=== PATIENT | female | born 1980 | race Hispanic/Latino ===

== ENCOUNTER 2019-12-30 09:13 | Inpatient (IN) | payer BC, MEDICAID ==
[~2019-12-30] VITALS: Ht 157.5 cm; Wt 116.6 kg
[2019-12-30] MEDS ORDERED: LACTATED RINGERS 1000ML 1,000 ML IV PRN (10:15)
[2019-12-30] MEDS ORDERED: EPHEDRINE SULFATE 50 MG/ML AMPULE IVP PRN (10:15)
[2019-12-30] MEDS ORDERED: OXYTOCIN-LR 20 UNITS/1000 ML 1,000 ML IV SCH ×3 (10:15→16:15)
[2019-12-30] MEDS ORDERED: PROMETHAZINE HCL 25 MG/ML 1ML AMPULE IM PRN (10:15)
[2019-12-30] MEDS ORDERED: LACTATED RINGERS 500 ML 500 ML IV PRN (10:15)
[2019-12-30] MEDS ORDERED: NALOXONE HCL 0.4 MG/1 ML ML IV PRN (10:15)
[2019-12-30] MEDS ORDERED: MEPERIDINE-PF 50 MG/ML SYG IVP PRN (10:15)
[2019-12-30] MEDS ORDERED: ROPIVACAINE 0.2% 100ML VIAL 100 ML EP SCH (10:15)
[2019-12-30 10:27] LABS: APPEARANCE,URINE Clear (CLEAR); BILIRUBIN,URINE Negative (NEGATIVE); COLOR,URINE Yellow (YELLOW); GLUCOSE, URINE (UA) Negative (NEGATIVE); HEMATOCRIT 34.8 % (36-48); KETONES,URINE Negative (NEGATIVE); LEUKOCYTE ESTERASE ,URINE Small (NEGATIVE); MEAN CORPUSCULAR HEMOGLOBIN 29.7 pg (27.0-33.0); MEAN CORPUSCULAR HGB CONC 33.3 g/dL (32.0-36.0); NITRATE,URINE Negative (NEGATIVE); OCCULT BLOOD,URINE Moderate (NEGATIVE); PROTEIN,URINE Trace mg/dL (NEGATIVE); RED BLOOD CELL COUNT(AUTO) 3.91 MIL/uL (4.00-5.50); RED CELL DISTRIBUTION WIDTH 13.5 % (11.0-15.5); WHITE BLOOD COUNT (AUTO) 9.5 K/uL (4.8-10.8)
[2019-12-30 10:47] LABS: BACTERIA,URINE Few /HPF (None Seen)
[2019-12-30] MEDS ORDERED: LIDOCAINE HCL 2% 20ML ONE (15:55)
[2019-12-30] MEDS ORDERED: IBUPROFEN 600 MG TABLET PO PRN (16:15)
[2019-12-30] MEDS ORDERED: LANOLIN 30GM OINTMENT TP PRN (16:15)
[2019-12-30] MEDS ORDERED: ACETAMINOPHEN 325 MG TAB PO PRN (16:15)
[2019-12-30] MEDS ORDERED: WITCH HAZEL 1 PAD TP PRN (16:15)
[2019-12-30] MEDS ORDERED: ACETAMINOPHEN-CODEINE 300/30MG TAB PO PRN (16:15)
[2019-12-30] MEDS ORDERED: MEASLES/MUMPS/RUBELLA VACCINE, LIVE 0.5 ML/VIAL SQ PRN (16:15)
[2019-12-30] MEDS ORDERED: BENZOCAINE/LANOLIN/ALOE VERA 60 ML AEROSOL TP PRN (16:15)
[2019-12-30] MEDS ORDERED: DIPH,PERTUSS(ACELL),TET VAC/PF 0.5 ML VIAL IM PRN (16:15)
[2019-12-30 19:35] VITALS: BP 130/78
[2019-12-30 19:37] VITALS: BP 134/78
[2019-12-30] MEDS: DOCUSATE SODIUM 100 MG CAP PO SCH (21:17)
[2019-12-31 00:04] VITALS: BP 124/78
[2019-12-31 04:00] VITALS: BP 110/67
[2019-12-31 08:14] LABS: HEPATITIS Bs ANTIGEN SCREEN P Negative (Negative)
[2019-12-31] MEDS ORDERED: FLU VACC QS2020-21(6MOS UP)/PF 60 MCG/0.5 ML ML IM ONE ×2 (08:52→11:00)
[2019-12-31] MEDS: DOCUSATE SODIUM 100 MG CAP PO SCH (08:54)
[2019-12-31 08:55] VITALS: BP 130/80
[2019-12-31 11:59] VITALS: BP 123/67
[2019-12-31] MEDS ORDERED: IBUP-2697 PO (15:48)
== END 2019-12-31 16:45 | disposition home or self-care (01) | DRG 807 ==
LOC: EDH 09:13 → LDH 09:14 → OBSVTOIN 10:15 → WSH 20:00
PROVIDERS: ADMIT Specialist; ATTEND Specialist
PROC: 10E0XZZ Delivery of Products of Conception, External Approach (ICD-10-PCS; principal; 2019-12-30)
PROC: 0HQ9XZZ Repair Perineum Skin, External Approach (ICD-10-PCS; 2019-12-30)
PROC: 3E02340 Introduction of Influenza Vaccine into Muscle, Percutaneous Approach (ICD-10-PCS; 2019-12-30)
PROC: 3E0234Z Introduction of Serum, Toxoid and Vaccine into Muscle, Percutaneous Approach (ICD-10-PCS; 2019-12-30)
DX: O70.0 First degree perineal laceration during delivery (principal); Z37.0 Single live birth; Z3A.40 40 weeks gestation of pregnancy; Z23 Encounter for immunization
CPT/HCPCS: 36415; 81001; 85027; 86592; 86850; 86900; 86901; 87340; 90715; A4351; G0378; J2175; J2550; J2590; J3490; Q2035

== ENCOUNTER 2021-11-13 16:05 | Observation (INO) | payer BC, MEDICAID ==
[~2021-11-13 16:05] MED LIST: IBUP-2697 PO
[2021-11-13 17:16] LABS: BASOPHILS % (AUTO) 0.2 % (0.0-5.0); HEMATOCRIT 35.6 % (36-48); LYMPHOCYTES % (AUTO) 18.2 % (21.0-51.0); MEAN CORPUSCULAR HEMOGLOBIN 27.4 pg (27.0-33.0); MEAN CORPUSCULAR HGB CONC 32.3 g/dL (32.0-36.0); MONOCYTES % (AUTO) 6.6 % (3.0-13.0); NEUTROPHILS % (AUTO) 73.6 % (40.0-77.0); PLATELET COUNT (AUTO) 224 K/uL (130-400); RED BLOOD CELL COUNT(AUTO) 4.19 MIL/uL (4.00-5.50); RED CELL DISTRIBUTION WIDTH 14.2 % (11.0-15.5); WHITE BLOOD COUNT (AUTO) 9.4 K/uL (4.8-10.8)
[2021-11-13 17:26] LABS: INR 0.93 (0.85-1.15); PROTHROMBIN TIME 9.8 SEC (9.6-11.6)
[2021-11-13 17:27] LABS: CREATININE 0.6 mg/dL (0.5-1.5); POTASSIUM 3.9 mmol/L (3.5-5.1)
[2021-11-13 17:28] LABS: APPEARANCE,URINE CLEAR (CLEAR); BILIRUBIN,URINE NEGATIVE (NEGATIVE); COLOR,URINE COLORLESS (YELLOW); GLUCOSE, URINE (UA) NEGATIVE (NEGATIVE); KETONES,URINE NEGATIVE (NEGATIVE); LEUKOCYTE ESTERASE ,URINE 25 Leu/uL (NEGATIVE); NITRATE,URINE NEGATIVE (NEGATIVE); OCCULT BLOOD,URINE NEGATIVE (NEGATIVE); PH,URINE 7.5 (5.0-8.0); PROTEIN,URINE NEGATIVE (NEGATIVE); UROBILINOGEN,URINE 0.2 mg/dL (0.2-1.0)
[2021-11-13 17:28] LABS: PARTIAL THROMBOPLASTIN TIME 22.9 SEC (26.3-35.5)
[2021-11-13 17:32] LABS: ALBUMIN 2.4 g/dL (3.5-5.0)
[2021-11-13 17:32] LABS: BACTERIA,URINE RARE /HPF (None Seen); MUCUS,URINE RARE LPF (None Seen)
== END 2021-11-13 18:24 | disposition home or self-care (01) ==
LOC: LDH 16:05
PROVIDERS: ADMIT Obstetrics & Gynecology; ATTEND Obstetrics & Gynecology
DX: O26.893 Other specified pregnancy related conditions, third trimester (principal); R03.0 Elevated blood-pressure reading, without diagnosis of hypertension; Z3A.36 36 weeks gestation of pregnancy
CPT/HCPCS: 84550; 80053; 85025; 85384; 85610; 85730; 87077; 87088; 87186; 81001; 36415; 76805; G0378 ×2; G0379; A4351